=== PATIENT | female | born 1960 | race African-American/Black ===

== ENCOUNTER 2017-05-22 09:25 | Day surgery (SDC) | payer OTHER ==
[2017-05-21 15:18] VITALS: BMI 21.6
[2017-05-22 09:53] VITALS: TEMP 97.9
[2017-05-22] MEDS ORDERED: PROPOFOL 20 ML ONE ×3 (09:57)
[2017-05-22 10:59] VITALS: BP 128/72
[2017-05-22 11:14] VITALS: PULSE 65
== END 2017-05-22 11:50 | disposition home or self-care (01) ==
LOC: JASU-ENDO 09:25
PROVIDERS: ATTEND Internal Medicine Gastroenterology
PROC: 0DJD8ZZ Inspection of Lower Intestinal Tract, Via Natural or Artificial Opening Endoscopic (ICD-10-PCS; principal; 2017-05-22 09:45)
DX: Z12.11 Encounter for screening for malignant neoplasm of colon (principal)